=== PATIENT | female | born 1975 | race Caucasian/White ===

== ENCOUNTER 2020-04-06 13:16 | Emergency (ER) | payer OTHER, SELFPAY ==
--- NOTE | ~2020-04-06 | XR_ITS ---
XR hand RT min 3V DATE: 04/06/2020 13:45 INDICATION: Pain and swelling at third metacarpal TECHNIQUE: 3 views COMPARISON: None FINDINGS: No fracture or dislocation, periosteal reaction or bone destruction. Joint spaces are pres erved. IMPRESSION: Negative Reviewed, dictated and finalized at location A. IMPRESSION: Negative
[2020-04-06 13:29] VITALS: BP 129/76; PULSE 92; RESP 16; TEMP 37; O2SAT 97
--- NOTE | 2020-04-06 13:34 | ED.UPPEXIN ---
HPI - Extremity Injury (Upper) General Chief Complaint: Extremity Injury, Upper Stated Complaint: injury to hand playing ball on saturday Time Seen by Provider: 04/06/20 13:34 Source: patient Mode of arrival: ambulatory Limitations: no limitations History of Present Illness HPI narrative: 44-year-old woman comes in today complaining of pain in the base of the right hand that started 4 days ago. Patient states that she was swinging a golf club and struck the ground, causing her some discomfort in her right hand. She states that she was having difficulty holding the club thereafter. Her symptoms have not improved over the last 4 days. She denies any numbness, tingling, prior hand or wrist fractures or surgeries. complaint: injury to: right and hand Other Extremity Injury: Right: hand Other injuries: none Place: outdoors Severity: moderate Relieving factors: none Exacerbating factors: movement of extremity Context: direct blow Associated symptoms: weakness Related Data Home Medications Medication Instructions Recorded Confirmed No Home Medications 04/06/20 04/06/20 Allergies Allergy/AdvReac Type Severity Reaction Status Date / Time amoxicillin Allergy Unknown Verified 02/20/18 10:15 clavulanic acid Allergy Unknown SWELLING Verified 12/26/18 18:10 RASH sulfamethizole Allergy Unknown Verified 02/20/18 10:15 sulfamethoxazole Allergy Unknown N/V, JOINT Verified 12/26/18 18:10 PAIN trimethoprim Allergy Unknown Verified 02/20/18 10:15 Review of Systems Constitutional: Constitutional: Denies chills and Denies fever(s) Musculoskeletal: Musculoskeletal: Reports arthralgias, Reports joint swelling and Denies muscle cramps Integumentary/Breasts: Skin/Breast: Denies pruritus, Denies erythema and Denies rash Neurologic: Denies focal weakness and Denies numbness Hematologic/Lymphatic: Hematologic/Lymphatic: Denies easy bleeding and Denies easy bruising Allergic/Immunologic: Allergic/Immunologic: Denies lip swelling and Denies wheezing PMFSH Past Medical History Medical History Asthma Surgical History Surgical History H/O: hysterectomy Family History Family History (Updated 02/20/18 @ 10:17 by DOCTOR UNKNOWN) Father Hypertension Cerebrovascular accident Grandparent Family history of malignant neoplasm of breast in first degree relative Social History Social History Smoking status: Never smoker Second hand tobacco smoke exposure: No Alcohol intake: current Exam Const: General: healthy appearing, no acute distress and alert Orientation/consciousness: patient oriented x3 Limitations: no limitations HENMT: Head: normal to inspection Resp: Effort & Inspection: normal respiratory effort and not labored Auscultation: clear to auscultation bilaterally, no rales, no rhonchi and no wheezes Cardio: Rate: regular rate Rhythm: regular rhythm Heart sounds: no murmurs Skin: General skin exam: normal color, no jaundice and no pallor Rashes: no rashes Neuro: General: patient oriented x3, moves all extremities, no focal motor deficits and CN's II-XI intact bilaterally Speech: normal speech Gait exam (Neuro): Normal gait present Extrem: General: normal to inspection and no clubbing, cyanosis or edema Other: mild tenderness over the right dorsal carpals at around the base of the 3rd and 4th metatarsals. Minimal swelling on the dorsal aspect. There is a negative Tinel's sign and normal ROM. Psych: Appearance: grossly normal and well kempt Mental Status: mental status grossly normal Affect: normal affect Attitude: cooperative Thought content: Yes Normal thought content present Course Vital Signs Vital signs: Vital Signs Temperature 37.0 C 04/06/20 13:29 Pulse Rate 92 04/06/20 13:29 Respiratory Rate 16
[2020-04-06 14:17] VITALS: RESP 14; O2SAT 100
== END 2020-04-06 14:18 | disposition home or self-care (01) ==
PROVIDERS: Emergency Provider Emergency Medicine
DX: S63.501A Unspecified sprain of right wrist, initial encounter (principal); X58.XXXA Exposure to other specified factors, initial encounter; Y93.53 Activity, golf
CPT/HCPCS: 73130; 99282; 99283

== ENCOUNTER → 2024-08-17 16:07 | Emergency (ER) | payer OTHER, SELFPAY | END | disposition left against medical advice (07) | PROVIDERS: Emergency Provider Nurse Practitioner Family; PCP Family Medicine | DX: Z53.21 Procedure and treatment not carried out due to patient leaving prior to being seen by health care provider (principal) | CPT/HCPCS: 99199; 99212; G0463 ==